=== PATIENT | female | born 1945 | race Caucasian/White ===

== ENCOUNTER 2017-09-20 08:41 | Emergency (ER) | payer MEDICARE, BC ==
[2017-09-20] MEDS: LIDOCAINE 1% (MDV) 20 ML INJ SC (09:30)
== END 2017-09-20 09:50 | disposition home or self-care (01) ==
LOC: FTE 08:41
DX: L02.213 Cutaneous abscess of chest wall (principal)
CPT/HCPCS: 10061; 99284-25

== ENCOUNTER 2017-09-22 07:36 | Emergency (ER) | payer MEDICARE, BC | END 2017-09-22 10:13 | disposition home or self-care (01) | LOC: FTE 07:36 | DX: Z48.01 Encounter for change or removal of surgical wound dressing (principal); E11.9 Type 2 diabetes mellitus without complications; Z79.4 Long term (current) use of insulin; Z79.82 Long term (current) use of aspirin | CPT/HCPCS: 99281 ==

== ENCOUNTER 2018-03-25 16:23 | Emergency (ER) | payer SELFPAY, BC, MEDICARE | END 2018-03-25 19:39 | disposition left against medical advice (07) | LOC: FTE 16:23 | DX: Z53.21 Procedure and treatment not carried out due to patient leaving prior to being seen by health care provider (principal) ==